=== PATIENT | male | born 1990 | race Caucasian/White ===

== ENCOUNTER 2018-05-26 02:30 | Emergency (ER) | payer SELFPAY ==
[~2018-05-26] VITALS: Ht 180.3 cm; Wt 65.9 kg
[2018-05-26 02:47] VITALS: BP 135/71; TEMP 98.1
[2018-05-26 03:44] LABS: BASO % 0.4 % (0.0-2.0); EOS # 0.3 (0.0-0.7); EOS % 2.6 % (0-4.0); GRAN # 5.1 (1.4-6.5); GRAN % 51.9 % (42.2-75.2); HEMATOCRIT 40.1 % (42.0-52.0); LYMPH # 3.6 (1.2-3.4); LYMPH % 37.4 % (20.0-51.0); MEAN CELL VOLUME 91 fl (80.0-100.0); MEAN CORPUSCULAR HEMOGLOBIN 32 pg (27.0-31.0); MEAN CORPUSCULAR HGB CONC 35 g/dl (33.0-37.0); MEAN PLATELET VOLUME 9.8 fl (7.4-10.4); MONO # 0.7 (0.1-0.6); MONO % 7.4 % (1.7-9.3); PLATELET COUNT 181 K/mm3 (130-400); REDCELL DISTRIBUTION WIDTH-CV 11.9 % (11.5-14.5)
[2018-05-26 03:48] LABS: COLLECTION METHOD CLEAN CATCH
[2018-05-26 03:53] LABS: PH 8 (5-8); SQUAMOUS EPITHELIAL 0-2 /hpf; URINE APPEARANCE Clear; URINE BACTERIA None Seen /hpf; URINE BILIRUBIN Negative (NEGATIVE); URINE BLOOD Negative (NEGATIVE); URINE COLOR Colorless; URINE GLUCOSE Negative (NEGATIVE); URINE KETONE Negative (NEGATIVE); URINE LEUKOCYTE ESTERASE Negative (NEGATIVE); URINE NITRATE Negative (NEGATIVE); URINE PROTEIN(semi-quant) Negative (NEGATIVE); URINE RBC 0-2 /hpf; URINE UROBILINOGEN Negative (NEGATIVE); URINE WBC 0-2 /hpf
[2018-05-26 03:59] LABS: ALANINE AMINOTRANSFERASE 23 U/L (21-72); ALBUMIN 4.6 gm/dL (3.5-5.0); ALKALINE PHOSPHATASE 59 U/L (50-136); ANION GAP 11 mmol/L (7-16); AST,SGOT 44 U/L (15-37); BILIRUBIN,TOTAL 0.9 mg/dL (0.0-1.0); BLOOD UREA NITROGEN 8 mg/dL (9-20); CALCIUM 9.9 mg/dL (8.4-10.2); CARBON DIOXIDE 24 mmol/L (22-30); CHLORIDE 98 mmol/L (98-107); GLUCOSE 81 mg/dL (74-106); LIPASE 120 U/L (23-300); POTASSIUM 3.7 mmol/L (3.4-5.0); SODIUM 133 mmol/L (137-145); TOTAL PROTEIN 7.3 gm/dL (6.4-8.2)
[2018-05-26 04:04] LABS: C-REACTIVE PROTEIN < 0.5 mg/dL (0.0-0.9)
[2018-05-26] MEDS ORDERED: PROTONIX 40MG T40 MG PO (05:34)
[2018-05-26 05:59] VITALS: PULSE 80
== END 2018-05-26 06:00 | disposition home or self-care (01) ==
LOC: COL.ER 02:30
PROVIDERS: Emergency Medicine
DX: R10.12 Left upper quadrant pain (principal); F17.210 Nicotine dependence, cigarettes, uncomplicated
CPT/HCPCS: J1170; J2405; J7030; Q9967

== ENCOUNTER 2018-06-01 02:20 | Emergency (ER) | payer SELFPAY ==
[~2018-06-01] VITALS: Ht 180.3 cm; Wt 65.9 kg
[~2018-06-01 02:20] MED LIST: PROTONIX 40MG T40 MG PO
[2018-06-01 02:35] VITALS: BP 129/81; TEMP 99.9
[2018-06-01 04:14] LABS: COLLECTION METHOD CLEAN CATCH
[2018-06-01 04:35] LABS: PH 7 (5-8); SQUAMOUS EPITHELIAL None Seen /hpf; URINE APPEARANCE Clear; URINE BACTERIA None Seen /hpf; URINE BILIRUBIN Negative (NEGATIVE); URINE BLOOD Negative (NEGATIVE); URINE COLOR Colorless; URINE GLUCOSE Negative (NEGATIVE); URINE KETONE Negative (NEGATIVE); URINE LEUKOCYTE ESTERASE Negative (NEGATIVE); URINE NITRATE Negative (NEGATIVE); URINE PROTEIN(semi-quant) Negative (NEGATIVE); URINE RBC 0-2 /hpf; URINE UROBILINOGEN Negative (NEGATIVE)
[2018-06-01 04:48] LABS: BASO % 0.3 % (0.0-2.0); EOS # 0.2 (0.0-0.7); EOS % 1.4 % (0-4.0); GRAN # 7.1 (1.4-6.5); GRAN % 65.8 % (42.2-75.2); HEMATOCRIT 40.2 % (42.0-52.0); HEMOGLOBIN 14.2 g/dl (13.5-18.0); LYMPH # 2.6 (1.2-3.4); LYMPH % 24.4 % (20.0-51.0); MEAN CELL VOLUME 90 fl (80.0-100.0); MEAN CORPUSCULAR HEMOGLOBIN 32 pg (27.0-31.0); MEAN CORPUSCULAR HGB CONC 35 g/dl (33.0-37.0); MEAN PLATELET VOLUME 10.1 fl (7.4-10.4); MONO # 0.8 (0.1-0.6); MONO % 7.8 % (1.7-9.3); PLATELET COUNT 190 K/mm3 (130-400); RED BLOOD COUNT 4.47 M/mm3 (4.20-5.60)
[2018-06-01 04:55] LABS: ALANINE AMINOTRANSFERASE 26 U/L (21-72); ALBUMIN 4.6 gm/dL (3.5-5.0); ALKALINE PHOSPHATASE 66 U/L (50-136); ANION GAP 10 mmol/L (7-16); AST,SGOT 42 U/L (15-37); BILIRUBIN,TOTAL 0.9 mg/dL (0.0-1.0); BLOOD UREA NITROGEN 9 mg/dL (9-20); CALCIUM 9.9 mg/dL (8.4-10.2); CARBON DIOXIDE 26 mmol/L (22-30); CHLORIDE 96 mmol/L (98-107); CREATININE, serum 0.58 mg/dL (0.66-1.25); GLUCOSE 82 mg/dL (74-106); POTASSIUM 3.7 mmol/L (3.4-5.0); SODIUM 131 mmol/L (137-145); TOTAL PROTEIN 7.4 gm/dL (6.4-8.2)
[2018-06-01 05:01] LABS: C-REACTIVE PROTEIN < 0.5 mg/dL (0.0-0.9)
[2018-06-01 05:15] VITALS: PULSE 81
== END 2018-06-01 05:16 | disposition home or self-care (01) ==
LOC: COL.ER 02:20
PROVIDERS: Emergency Medicine
DX: Z90.89 Acquired absence of other organs (principal); R10.30 Lower abdominal pain, unspecified; F17.210 Nicotine dependence, cigarettes, uncomplicated

== ENCOUNTER 2018-06-06 21:30 | Emergency (ER) | payer SELFPAY ==
[~2018-06-06] VITALS: Ht 182.9 cm; Wt 63.6 kg
[2018-06-06 21:33] VITALS: TEMP 97.3
[2018-06-06 22:07] LABS: BASO % 0.2 % (0.0-2.0); EOS # 0.2 (0.0-0.7); EOS % 2.1 % (0-4.0); GRAN # 7.3 (1.4-6.5); GRAN % 66.8 % (42.2-75.2); HEMATOCRIT 39.7 % (42.0-52.0); HEMOGLOBIN 13.8 g/dl (13.5-18.0); LYMPH # 2.5 (1.2-3.4); MEAN CELL VOLUME 91 fl (80.0-100.0); MEAN CORPUSCULAR HEMOGLOBIN 32 pg (27.0-31.0); MEAN CORPUSCULAR HGB CONC 35 g/dl (33.0-37.0); MEAN PLATELET VOLUME 9.7 fl (7.4-10.4); MONO # 0.8 (0.1-0.6); MONO % 7.7 % (1.7-9.3); PLATELET COUNT 200 K/mm3 (130-400); RED BLOOD COUNT 4.35 M/mm3 (4.20-5.60); REDCELL DISTRIBUTION WIDTH-CV 11.9 % (11.5-14.5)
[2018-06-06 22:17] LABS: ALANINE AMINOTRANSFERASE 24 U/L (21-72); ALBUMIN 4.5 gm/dL (3.5-5.0); ALKALINE PHOSPHATASE 64 U/L (50-136); ANION GAP 9 mmol/L (7-16); AST,SGOT 40 U/L (15-37); BILIRUBIN,TOTAL 0.7 mg/dL (0.0-1.0); BLOOD UREA NITROGEN 8 mg/dL (9-20); C-REACTIVE PROTEIN < 0.5 mg/dL (0.0-0.9); CALCIUM 9.4 mg/dL (8.4-10.2); CARBON DIOXIDE 26 mmol/L (22-30); CHLORIDE 93 mmol/L (98-107); GLUCOSE 87 mg/dL (74-106); LIPASE 159 U/L (23-300); POTASSIUM 3.6 mmol/L (3.4-5.0); SODIUM 128 mmol/L (137-145); TOTAL PROTEIN 6.8 gm/dL (6.4-8.2)
[2018-06-06 22:24] LABS: COLLECTION METHOD CLEAN CATCH
[2018-06-06 22:30] LABS: PH 7 (5-8); SQUAMOUS EPITHELIAL None Seen /hpf; URINE APPEARANCE Clear; URINE BACTERIA None Seen /hpf; URINE BILIRUBIN Negative (NEGATIVE); URINE BLOOD Negative (NEGATIVE); URINE COLOR Straw; URINE GLUCOSE Negative (NEGATIVE); URINE KETONE Trace (NEGATIVE); URINE LEUKOCYTE ESTERASE Negative (NEGATIVE); URINE NITRATE Negative (NEGATIVE); URINE PROTEIN(semi-quant) Negative (NEGATIVE); URINE RBC None Seen /hpf; URINE UROBILINOGEN Negative (NEGATIVE); URINE WBC None Seen /hpf
[2018-06-06] MEDS ORDERED: BENTYL 20MG20 MG/TAB PO (22:42)
[2018-06-06 23:08] VITALS: BP 125/73; PULSE 81
== END 2018-06-06 23:09 | disposition home or self-care (01) ==
LOC: COL.ER 21:30
PROVIDERS: Emergency Medicine
DX: R10.9 Unspecified abdominal pain (principal); F17.210 Nicotine dependence, cigarettes, uncomplicated